=== PATIENT | male | born 1985 | race Caucasian/White ===

== ENCOUNTER 2022-11-01 20:38 | Emergency (ER) | payer BC | END 2022-11-02 00:30 | disposition home or self-care (01) | LOC: JD.ED 20:38 | DX: G44.209 Tension-type headache, unspecified, not intractable (principal); B34.9 Viral infection, unspecified; Z87.891 Personal history of nicotine dependence; Z86.16 Personal history of COVID-19 | CPT/HCPCS: 69200; 99283-25 ==